=== PATIENT | male | born 1940 | race Caucasian/White ===

== ENCOUNTER 2018-04-28 16:06 | Inpatient (IN) | payer OTHER ==
[~2018-04-28] VITALS: Ht 177.8 cm; Wt 87.7 kg
[~2018-04-28 16:06] MED LIST: ACEBUTCAFT PO; ASCO500 PO; ASPI325; CENTRUM SILVER1 EAC2 PO; CIPR500 PO; CYAN100 PO; CYAN500; ERGO400 PO; FISH1000 PO; Ferrous Sulfat325 MG PO; HYDACE5 PO; LECITHIN; LEVSOD125; LEVSOD137 PO; Lopressor 25 mg25 MG PO; METO25ER PO; METR500 PO; MULVITA PO; OXYACE5T PO; POLY17UD PO; ROPI.25 PO; RXHYDACE PO; WARF5 PO; [UNRECOGNIZED DRUG - OTHER]; [UNRECOGNIZED DRUG - OTHER] PO
[2018-04-28] MEDS ORDERED: ELIQUIS5 MG PO (16:32)
[2018-04-28] MEDS ORDERED: CETI5 PO (16:33)
[2018-04-28] MEDS ORDERED: FURO40 PO (16:33)
[2018-04-28] MEDS ORDERED: GABA300 PO (16:37)
[2018-04-28] MEDS ORDERED: GUAIASORB DM L118 ML PO (16:37)
[2018-04-28] MEDS ORDERED: HYDROMORPHO1 MG/1 M4 IM (16:38)
[2018-04-28] MEDS ORDERED: POTCHL10ER PO (16:39)
[2018-04-28] MEDS ORDERED: Milk Of Ma400 MG/5 M PO (17:08)
[2018-04-28] MEDS ORDERED: METCAR500 PO (17:10)
[2018-04-28] MEDS ORDERED: Acidophilus La100 GM (17:11)
[2018-04-28] MEDS ORDERED: TAMS.4ER PO (17:12)
[2018-04-28 19:38] LABS: International Normalized Ratio 1.19; Prothrombin Time Results 12.1 Sec (9.7-11.5)
[2018-04-29 05:03] LABS: Hematocrit 33.9 % (37.0-53.0); Hemoglobin 10.6 g/dL (13.5-17.5); Mean Corpuscular HGB 26.8 pg (26.0-34.0); Mean Corpuscular HGB Conc 31.3 g/dL (31.5-36.5); Mean Corpuscular Volume 86 fL (80-100); RDW Coefficient Variation 17.4 % (11.7-14.2); RDW Standard Deviation 54.4 fL (35.1-46.3); Red Blood Cell Count 3.96 M/mm3 (4.30-5.90); White Blood Cell Count 4.09 K/mm3 (4.00-11.30)
[2018-04-29 05:16] LABS: Platelet Count 3 K/mm3 (150-400)
[2018-04-29 05:19] LABS: Anion Gap 8 mmol/L (6-16); Blood Urea Nitrogen 17 mg/dL (8-24); Bun/Creatinine Ratio 26.7 (12.0-20.0); CO2, Blood 25 mmol/L (21-32); Calcium, Blood 8.5 mg/dL (8.5-10.1); Chloride, Blood 104 mmol/L (98-108); Creatinine, Blood 0.64 mg/dL (0.60-1.20); Glomerular Filtration Rate >60 (60-); Glucose, Blood 160 mg/dL (70-99); Potassium, Blood 3.9 mmol/L (3.5-5.5); Sodium, Blood 137 mmol/L (136-145)
[2018-04-29 05:40] LABS: BASOPHILS PERCENT MAN 0 % (0-2); EOSINOPHILS PERCENT MAN 0 % (0-6); LYMPHOCYTES ABSOLUTE MAN 0.32 K/mm3 (0.84-5.20); LYMPHOCYTES PERCENT MAN 8 % (21-46); MONOCYTES PERCENT MAN 0 % (4-13); NEUTROPHILS ABSOLUTE MAN 3.76 K/mm3 (1.96-9.15); SEG NEUTROPHILS PERCENT MAN 92 % (41-73); TOTAL CELLS COUNTED 100
[2018-04-30 04:55] LABS: BASOPHILS ABSOLUTE AUTO 0.01 K/mm3 (0.00-0.23); BASOPHILS PERCENT AUTO 0 % (0-2); EOSINOPHILS PERCENT AUTO 0 % (0-6); Hematocrit 32.1 % (37.0-53.0); Hemoglobin 10.1 g/dL (13.5-17.5); IMMATURE GRAN ABSOLUTE AUTO 0.05 K/mm3 (0.00-0.10); IMMATURE GRAN PERCENT AUTO 1 % (0-1); LYMPHOCYTES ABSOLUTE AUTO 0.72 K/mm3 (0.84-5.20); LYMPHOCYTES PERCENT AUTO 7 % (21-46); MONOCYTES ABSOLUTE AUTO 0.37 K/mm3 (0.16-1.47); MONOCYTES PERCENT AUTO 4 % (4-13); Mean Corpuscular HGB 27.4 pg (26.0-34.0); Mean Corpuscular HGB Conc 31.5 g/dL (31.5-36.5); Mean Corpuscular Volume 87 fL (80-100); NEUTROPHILS ABSOLUTE AUTO 9.43 K/mm3 (1.96-9.15); NEUTROPHILS PERCENT AUTO 89 % (41-73); RDW Coefficient Variation 17.7 % (11.7-14.2); RDW Standard Deviation 56.3 fL (35.1-46.3); Red Blood Cell Count 3.68 M/mm3 (4.30-5.90); White Blood Cell Count 10.58 K/mm3 (4.00-11.30)
[2018-04-30 05:03] LABS: Platelet Count 14 K/mm3 (150-400)
[2018-04-30] MEDS ORDERED: DEXA4 PO (10:14)
== END 2018-04-30 15:08 | disposition home or self-care (01) | DRG 813 ==
LOC: ER 16:06 → MEDS 16:16 → EDPENDDIS 04-30 07:13 → ENPENDDIS 04-30 07:13 → MEDS 04-30 15:08
PROVIDERS: Internal Medicine; Internal Medicine Hematology & Oncology
DX: D69.3 Immune thrombocytopenic purpura (principal); I50.32 Chronic diastolic (congestive) heart failure; N40.0 Benign prostatic hyperplasia without lower urinary tract symptoms; E03.9 Hypothyroidism, unspecified; G89.29 Other chronic pain; M54.9 Dorsalgia, unspecified; G47.33 Obstructive sleep apnea (adult) (pediatric); I48.0 Paroxysmal atrial fibrillation; E66.9 Obesity, unspecified; M06.9 Rheumatoid arthritis, unspecified; K21.9 Gastro-esophageal reflux disease without esophagitis; M10.9 Gout, unspecified; I25.10 Atherosclerotic heart disease of native coronary artery without angina pectoris; K40.90 Unilateral inguinal hernia, without obstruction or gangrene, not specified as recurrent; Z87.820 Personal history of traumatic brain injury; Z88.5 Allergy status to narcotic agent; Z88.2 Allergy status to sulfonamides; Z79.01 Long term (current) use of anticoagulants; Z79.899 Other long term (current) drug therapy; Z68.28 Body mass index [BMI] 28.0-28.9, adult
CPT/HCPCS: 36415; 36430; 80048; 83615; 85007; 85025; 85027; 85610; 85730; 86850; 86900; 86901; 94762; 99285-25; J2405; J3010; J7030; P9035

== ENCOUNTER 2018-08-16 10:45 | Day surgery (SDC) | payer OTHER ==
[~2018-08-16] VITALS: Ht 177.8 cm; Wt 85.5 kg
[~2018-08-16 10:45] MED LIST changes: +ALBU90OI INH; +Acidophilus La100 GM; +Acidophilus La100 GM PO; +BUTALBITAL-ACE1 EAC1 PO; +CETI5 PO; +CHOL10002 PO; +Chest Congesti400 MG PO; +DEXA4 PO; +ELIQUIS5 MG PO; +FAMO20 PO; +FURO40 PO; +GABA300 PO; +GENTEAL TEARS 015 M1 BOTHEYES; +GUAIASORB DM L118 ML PO; +HYDR1TAB94 PO; +HYDROMORPHO1 MG/1 M4 IM; +K-Dur20 MEQ PO; +METCAR500 PO; +Milk Of Ma400 MG/5 M PO; +ONDA4 PO; +POTCHL10ER PO; +TAMS.4ER PO; +[UNRECOGNIZED DRUG - OTHER] BOTHEYES
[2018-08-16] MEDS ORDERED: DABI150C (11:27)
== END 2018-08-16 13:04 | disposition home or self-care (01) ==
LOC: ORSCSDS 10:45
PROVIDERS: Surgery
PROC: 0DBK8ZX Excision of Ascending Colon, Via Natural or Artificial Opening Endoscopic, Diagnostic (ICD-10-PCS; principal; 2018-08-16 12:00)
PROC: 0DBH8ZX Excision of Cecum, Via Natural or Artificial Opening Endoscopic, Diagnostic (ICD-10-PCS; principal; 2018-08-16 12:00)
DX: R19.4 Change in bowel habit (principal); D12.0 Benign neoplasm of cecum; D12.2 Benign neoplasm of ascending colon; K64.8 Other hemorrhoids; K64.4 Residual hemorrhoidal skin tags; K57.30 Diverticulosis of large intestine without perforation or abscess without bleeding; Z86.010 Personal history of colon polyps; G47.33 Obstructive sleep apnea (adult) (pediatric); E03.9 Hypothyroidism, unspecified; Z95.0 Presence of cardiac pacemaker; K21.9 Gastro-esophageal reflux disease without esophagitis; I48.91 Unspecified atrial fibrillation; F17.210 Nicotine dependence, cigarettes, uncomplicated; Z79.01 Long term (current) use of anticoagulants; Z79.899 Other long term (current) drug therapy
CPT/HCPCS: 88305; J2250; J7120

== ENCOUNTER 2019-01-20 07:07 | Inpatient (IN) | payer OTHER ==
[~2019-01-20] VITALS: Ht 177.8 cm; Wt 95.2 kg
[~2019-01-20 07:07] MED LIST changes: +Acidophilus1 EAC1 PO; +Butalbital-Asa1 EAC1 PO; +DABI150C PO; +GABA300T24 PO; +IRON PO; +MIRALAX17 GM PO; +MUCUS RELIEF C200 MG PO; +Pepcid 20 mg Ta20 MG PO; +THERA1 EACH PO; +TYLENOL ARTHRITIS PO
--- NOTE | 2019-01-20 08:19 | NUR ---
PATIENT BROUGHT INTO [facility] ADMISSION STARTED. DOCTOR AT BEDSIDE WHILE PATIENT UNDRESSING. RN HELPED PATIENT UNDRESS AND TWO NURSES PROCEEDED TO ADMIT PATIENT WHOM IS VERY CHATTY
--- NOTE | 2019-01-20 14:16 | NUR ---
PATIENT STATES PAIN CONTROLLED AFTER PO AND IV PAIN MEDS ADMIN. TOLERATING LIQUIDS PO. 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 VSS. AWAITING PT.
--- NOTE | 2019-01-20 19:29 | NUR ---
SHIFT SUMMARY PATIENT STATES PAIN TOLERABLE AND GENERAL PAIN R/T HIP IS IMPROVED. DRESSING CLEAR. TOLERATING PO. UP TO AMBULATE WITH PT WELL THIS AFTERNOON. VOIDING. NO C/O.
[2019-01-21 04:57] LABS: BASOPHILS ABSOLUTE AUTO 0.01 K/mm3 (0.00-0.23); BASOPHILS PERCENT AUTO 0 % (0-2); EOSINOPHILS ABSOLUTE AUTO 0.07 K/mm3 (0.00-0.68); EOSINOPHILS PERCENT AUTO 1 % (0-6); Hematocrit 35.7 % (37.0-53.0); Hemoglobin 11.6 g/dL (13.5-17.5); IMMATURE GRAN ABSOLUTE AUTO 0.02 K/mm3 (0.00-0.10); IMMATURE GRAN PERCENT AUTO 0 % (0-1); LYMPHOCYTES ABSOLUTE AUTO 1.68 K/mm3 (0.84-5.20); LYMPHOCYTES PERCENT AUTO 21 % (21-46); MONOCYTES ABSOLUTE AUTO 0.87 K/mm3 (0.16-1.47); MONOCYTES PERCENT AUTO 11 % (4-13); Mean Corpuscular HGB 31.5 pg (26.0-34.0); Mean Corpuscular HGB Conc 32.5 g/dL (31.5-36.5); Mean Corpuscular Volume 97 fL (80-100); Mean Platelet Volume 8.8 fL (9.1-12.4); NEUTROPHILS ABSOLUTE AUTO 5.53 K/mm3 (1.96-9.15); NEUTROPHILS PERCENT AUTO 68 % (41-73); Platelet Count 161 K/mm3 (150-400); RDW Coefficient Variation 14.3 % (11.7-14.2); RDW Standard Deviation 51.3 fL (35.1-46.3); Red Blood Cell Count 3.68 M/mm3 (4.30-5.90); White Blood Cell Count 8.18 K/mm3 (4.00-11.30)
[2019-01-21 05:20] LABS: Anion Gap 7 mmol/L (6-16); Blood Urea Nitrogen 17 mg/dL (8-24); Bun/Creatinine Ratio 25.4 (12.0-20.0); CO2, Blood 26 mmol/L (21-32); Chloride, Blood 105 mmol/L (98-108); Creatinine, Blood 0.67 mg/dL (0.60-1.20); Glomerular Filtration Rate >60 (60-); Glucose, Blood 104 mg/dL (70-99); Potassium, Blood 4.2 mmol/L (3.5-5.5); Sodium, Blood 138 mmol/L (136-145)
--- NOTE | 2019-01-21 06:01 | NUR ---
SHIFT SUMMARY PT A&O X4 T/O SHIFT. NO ACUTE CHANGES. POD#1 R MARCOS; DRESSING CDI T/O SHIFT. PAIN MANAGED PER EMAR. CRYOTHERAPY TO R HIP PT TOLERATED. PPPX4. CALL LIGHT IN REACH; PT DEMONSTRATES USE. HOME CPAP AND CONT. OXIMRTRY WHILE PT SLEEPING. SCD'S AND LAMBERT'S TO BLE'S. PT UP WITH FWW, GAITBELT AND SBA. WCTM UNTIL REPORT TO DAY SHIFT RN.
[2019-01-21] MEDS ORDERED: Percocet 5-3251 EACH PO (08:15)
--- NOTE | 2019-01-21 09:41 | NUR ---
PATIENT REFUSED SOME MEDS R/T GI UPSET, THOUGH IMPROVED SINCE MEDICATION ADMIN.
--- NOTE | 2019-01-21 11:36 | NUR ---
PATIENT D/C'D HOME WITH AT THIS TIME. PATIENT STATES PAIN CONTROLLED. VOIDING. TAKING PO WELL. PATIENT AND STATE UNDERSTANDING OF MEDS, ACTIVITY, WOUND CARE, OP PT, ETC. NO C/O AT THIS TIME.
--- NOTE | 2019-01-24 12:36 | NUR ---
01/24/19 1236 Maribel Morales VERIFICATIONS: EDIT CHART.
== END 2019-01-21 11:37 | disposition home or self-care (01) | DRG 470 ==
LOC: SURS 07:07 → PRE IP 08:30 → SURS 12:13
PROVIDERS: ADMIT Orthopaedic Surgery
PROC: 0SR90JA Replacement of Right Hip Joint with Synthetic Substitute, Uncemented, Open Approach (ICD-10-PCS; principal; 2019-01-20 08:30)
DX: M87.051 Idiopathic aseptic necrosis of right femur (principal); D69.3 Immune thrombocytopenic purpura; M06.9 Rheumatoid arthritis, unspecified; I48.91 Unspecified atrial fibrillation; K21.9 Gastro-esophageal reflux disease without esophagitis; I25.10 Atherosclerotic heart disease of native coronary artery without angina pectoris; E03.9 Hypothyroidism, unspecified; Z87.820 Personal history of traumatic brain injury; Z88.1 Allergy status to other antibiotic agents; Z88.5 Allergy status to narcotic agent; Z88.8 Allergy status to other drugs, medicaments and biological substances; Z79.01 Long term (current) use of anticoagulants; Z79.899 Other long term (current) drug therapy
CPT/HCPCS: 36415; 72170; 80048; 83735; 85025; 86850; 86900; 86901; 88300; 94762; 97110; 97116; 97162; 97530; C1776; J0171; J0690; J0735; J1100; J1170; J1885; J2250; J2405; J2704; J2765; J2795; J3010; J7120

== ENCOUNTER → 2020-01-15 | Outpatient (CLI) | payer OTHER ==
[~2020-01-15] MED LIST changes: +Percocet 5-3251 EACH PO
== END | disposition home or self-care (01) ==
LOC: LAB SHORT 14:00 → LAB 14:00
DX: M54.6 Pain in thoracic spine (principal); R10.9 Unspecified abdominal pain
CPT/HCPCS: 87086

== ENCOUNTER 2024-08-07 09:38 | Emergency (ER) | payer OTHER ==
[~2024-08-07] VITALS: Ht 177.8 cm; Wt 99.8 kg
[2024-08-07] MEDS ORDERED: Mag Hydrox/AL Hydrox/Simeth 30 ML UDC PO ONE (09:55)
[2024-08-07] MEDS ORDERED: Ketorolac Tromethamine 30mg Vial IV ONE (09:55)
[2024-08-07 09:56] LABS: BASOPHILS ABSOLUTE AUTO 0.03 K/mm3 (0.00-0.23); BASOPHILS PERCENT AUTO 1 % (0-2); EOSINOPHILS ABSOLUTE AUTO 0.49 K/mm3 (0.00-0.68); EOSINOPHILS PERCENT AUTO 7 % (0-6); Hemoglobin 15.3 g/dL (13.5-17.5); IMMATURE GRAN ABSOLUTE AUTO 0.02 K/mm3 (0.00-0.10); IMMATURE GRAN PERCENT AUTO 0 % (0-1); LYMPHOCYTES PERCENT AUTO 21 % (21-46); MONOCYTES ABSOLUTE AUTO 0.66 K/mm3 (0.16-1.47); MONOCYTES PERCENT AUTO 10 % (4-13); Mean Corpuscular HGB 32.8 pg (26.0-34.0); Mean Corpuscular HGB Conc 33.3 g/dL (31.5-36.5); Mean Corpuscular Volume 99 fL (80-100); NEUTROPHILS ABSOLUTE AUTO 4.03 K/mm3 (1.96-9.15); NEUTROPHILS PERCENT AUTO 61 % (41-73); Platelet Count 169 K/mm3 (150-400); RDW Coefficient Variation 13.2 % (11.7-14.2); RDW Standard Deviation 47.5 fL (35.1-46.3); Red Blood Cell Count 4.67 M/mm3 (4.30-5.90); White Blood Cell Count 6.63 K/mm3 (4.00-11.30)
[2024-08-07 10:14] LABS: Albumin, Blood 3.5 g/dL (3.4-5.0); Albumin/Globulin Ratio 0.9 (0.8-1.8); Bilirubin, Total 1.2 mg/dL (0.1-1.0); Bun/Creatinine Ratio 14.6 (12.0-20.0); Calcium, Blood 8.7 mg/dL (8.5-10.1); Creatinine, Blood 0.76 mg/dL (0.60-1.20); Globulin, Blood 3.8 g/dL (2.2-4.0); Magnesium, Blood 2.2 mg/dL (1.6-2.4); Total Protein, Blood 7.3 g/dL (6.4-8.2)
[2024-08-07 11:53] LABS: CORONAVIRUS COVID-19 AG Negative (NEGATIVE); INFLUENZA A AG Negative (NEGATIVE); INFLUENZA B AG Negative (NEGATIVE)
[2024-08-07 15:10] VITALS: BP 143/87
== END 2024-08-07 15:10 | disposition home or self-care (01) ==
LOC: ER 09:38
PROVIDERS: Student in an Organized Health Care Education/Training Program
DX: R55 Syncope and collapse (principal); T17.928A Food in respiratory tract, part unspecified causing other injury, initial encounter; W44.F3XA Food entering into or through a natural orifice, initial encounter; Z88.1 Allergy status to other antibiotic agents; Z88.2 Allergy status to sulfonamides; Z88.5 Allergy status to narcotic agent; Z88.8 Allergy status to other drugs, medicaments and biological substances; Z79.899 Other long term (current) drug therapy; I48.0 Paroxysmal atrial fibrillation; Z79.01 Long term (current) use of anticoagulants; G47.30 Sleep apnea, unspecified; Z87.820 Personal history of traumatic brain injury; K21.9 Gastro-esophageal reflux disease without esophagitis; Z87.442 Personal history of urinary calculi; Z87.891 Personal history of nicotine dependence
CPT/HCPCS: 71046; 80053; 83735; 83880; 84484; 85025; 87428-QW; 93005; 93010; 99284-25; A9270; J1885

== ENCOUNTER 2025-07-04 12:21 | Day surgery (SDC) | payer OTHER ==
[~2025-07-04] VITALS: Ht 177.8 cm; Wt 107.1 kg
[~2025-07-04 12:21] MED LIST changes: +Balanced Salt Epinephrine Irrigation Solution 500 mL IR SCH; +Ondansetron 4 MG SoluTab MM PRN; +PHENYLEPHRINE\\TROPICAMIDE\\TETRACAINE OPHTHALMIC DILATING SOLN RIGHTEYE PRN; +Povidone-Iodine 450 DROP/30 ML Solution ONE; +Povidone-Iodine 450 DROP/30 ML Solution RIGHTEYE SCH; +Tetracaine HCl/Pf 0.5% Opth Soln 4 ml ONE; +diazePAM 5 MG,diazePAM 2 MG PO SCH
--- NOTE | 2025-07-04 13:38 | NUR ---
07/04/25 2571 MATTHIAS DAVIS PRE VALIUM ANXIETY LEVEL 5/10, PT SELF REPORTS.
[2025-07-04] MEDS ORDERED: Moxifloxacin HCL 0.5 MG/0.1 ML 0.4MLSYR RIGHTEYE ONE (14:04)
[2025-07-04 14:58] VITALS: BP 143/73
== END 2025-07-04 14:50 | disposition home or self-care (01) ==
LOC: ORSCSDS 12:21
PROVIDERS: Student in an Organized Health Care Education/Training Program
PROC: 08RJ3JZ Replacement of Right Lens with Synthetic Substitute, Percutaneous Approach (ICD-10-PCS; principal; 2025-07-04 14:00)
DX: H25.813 Combined forms of age-related cataract, bilateral (principal); H21.81 Floppy iris syndrome; I48.91 Unspecified atrial fibrillation; Z95.0 Presence of cardiac pacemaker; K21.9 Gastro-esophageal reflux disease without esophagitis; E03.9 Hypothyroidism, unspecified; Z79.84 Long term (current) use of oral hypoglycemic drugs; Z79.899 Other long term (current) drug therapy; Z87.891 Personal history of nicotine dependence
CPT/HCPCS: A9270; V2632

== ENCOUNTER 2025-07-11 12:40 | Day surgery (SDC) | payer OTHER ==
[~2025-07-11] VITALS: Ht 177.8 cm; Wt 108.0 kg
[~2025-07-11 12:40] MED LIST changes: +Moxifloxacin HCL 0.5 MG/0.1 ML 0.4MLSYR LEFTEYE SCH; +PHENYLEPHRINE\\TROPICAMIDE\\TETRACAINE OPHTHALMIC DILATING SOLN LEFTEYE PRN; -PHENYLEPHRINE\\TROPICAMIDE\\TETRACAINE OPHTHALMIC DILATING SOLN RIGHTEYE PRN; +Povidone-Iodine 450 DROP/30 ML Solution LEFTEYE SCH; -Povidone-Iodine 450 DROP/30 ML Solution RIGHTEYE SCH
[2025-07-11] MEDS ORDERED: CALCIUM CARBON500 M1 PO (13:22)
[2025-07-11] MEDS ORDERED: VITAMIN D5000 UNIT PO (13:23)
[2025-07-11] MEDS ORDERED: FERSU300 PO (13:24)
[2025-07-11] MEDS ORDERED: JARDIANCE10 MG PO (13:24)
[2025-07-11] MEDS ORDERED: FLUTICASONE-SA1 EAC1 (13:25)
[2025-07-11] MEDS ORDERED: RIZATRIPTAN10 MG SL (13:29)
[2025-07-11] MEDS ORDERED: SPIR25 PO (13:29)
[2025-07-11] MEDS ORDERED: Tetracaine HCl 0.5% Opth Soln 15 ml LEFTEYE ONE (13:39)
--- NOTE | 2025-07-11 13:46 | NUR ---
07/11/25 1346 Justin Etienne N 115/92 99% 10L BLOW BY O2 78 18
[2025-07-11 14:21] VITALS: BP 120/84
== END 2025-07-11 14:20 | disposition home or self-care (01) ==
LOC: ORSCSDS 12:40
PROVIDERS: Student in an Organized Health Care Education/Training Program
PROC: 08RK3JZ Replacement of Left Lens with Synthetic Substitute, Percutaneous Approach (ICD-10-PCS; principal; 2025-07-11 14:00)
DX: H25.12 Age-related nuclear cataract, left eye (principal); H21.81 Floppy iris syndrome; Z96.1 Presence of intraocular lens; I48.91 Unspecified atrial fibrillation; E03.9 Hypothyroidism, unspecified; K21.9 Gastro-esophageal reflux disease without esophagitis; Z95.0 Presence of cardiac pacemaker; Z79.84 Long term (current) use of oral hypoglycemic drugs; Z79.899 Other long term (current) drug therapy; Z87.891 Personal history of nicotine dependence
CPT/HCPCS: A9270; V2632